=== PATIENT | male | born 1990 | race African-American/Black ===

== ENCOUNTER 2017-06-15 08:02 | Emergency (ER) | payer OTHER ==
[~2017-06-15] VITALS: Ht 177.8 cm; Wt 100.0 kg
[~2017-06-15 08:02] MED LIST: ATRITAB PO; CEPH500C3 PO; HYDR-3533 PO; TRUVTAB2 PO
[2017-06-15 08:03] VITALS: BP 144/61; PULSE 98; RESP 18; TEMP 98.4; O2SAT 98
[2017-06-15] MEDS ORDERED: TETANUS/DIPHTHERIA TOXOID ADULT 0.5 ML VIAL IM ONE (09:00)
[2017-06-15] MEDS ORDERED: traMADol HCL 50 MG TAB PO ONE (09:00)
[2017-06-15] MEDS ORDERED: LIDOCAINE HCL 1% PF 30 ML VIAL INFIL ONE (09:00)
[2017-06-15] MEDS ORDERED: IBUP1TAB7 PO (09:30)
[2017-06-15] MEDS ORDERED: TRAM50TA PO (09:30)
[2017-06-15] MEDS ORDERED: BACT800T5 PO (09:30)
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
== END 2017-06-15 10:20 | disposition home or self-care (01) ==
LOC: NEPD 08:02
DX: S41.112A Laceration without foreign body of left upper arm, initial encounter (principal); F17.210 Nicotine dependence, cigarettes, uncomplicated; X99.1XXA Assault by knife, initial encounter; Z21 Asymptomatic human immunodeficiency virus [HIV] infection status; Z23 Encounter for immunization
CPT/HCPCS: 12002; 90471; 90714